=== PATIENT | female | born 1950 | race Caucasian/White ===

== ENCOUNTER 2023-12-15 04:41 | Emergency (ER) | payer OTHER ==
[~2023-12-15] VITALS: Ht 172.7 cm; Wt 61.4 kg
[2023-12-15] MEDS: oxyCODONE ER 10 MG TAB PO ONE (05:03)
[2023-12-15] MEDS: FAMOTIDINE 20 MG TAB PO ONE (05:03)
[2023-12-15 05:04] VITALS: PULSE 59; RESP 16; O2SAT 96
[2023-12-15] MEDS: ONDANSETRON ODT 4 MG TAB PO ONE (05:04)
[2023-12-15] MEDS: MORPHINE SULFATE 4 MG/ML SYR/VIAL IM ONE (05:05)
[2023-12-15] MEDS: LORazepam 0.5 MG TAB PO ONE (05:40)
[2023-12-15 05:43] VITALS: BP 162/77; PULSE 54; RESP 22
== END 2023-12-15 06:00 | disposition home or self-care (01) ==
LOC: ER 04:41
DX: F11.23 Opioid dependence with withdrawal (principal); R10.9 Unspecified abdominal pain; R11.2 Nausea with vomiting, unspecified
CPT/HCPCS: 96372; 99284; J2270; Q0162

== ENCOUNTER 2023-12-15 17:29 | Inpatient (IN) | payer OTHER ==
[~2023-12-15] VITALS: Ht 172.7 cm; Wt 61.9 kg
[2023-12-15 18:32] LABS: Basophils # (auto) 0 10 ^3/uL (0-0.2); Basophils % (auto) 0.1 % (0.0-2.0); Eosinophils # (auto) 0 10 ^3/uL (0-0.8); Hematocrit 44.2 % (36.0-46.0); Hemoglobin 15.5 g/dL (12.2-16.2); Lymphocytes # (auto) 0.6 10 ^3/uL (0.4-5.4); Lymphocytes % (auto) 8.3 % (10.0-50.0); Mean Corpuscular Hgb Conc. 35.1 g/dL (32.0-36.0); Monocytes # (auto) 0.6 10 ^3/uL (0-1.3); Monocytes % (auto) 8.1 % (0.0-12.0); Neutrophils # (auto) 6.5 10 ^3/uL (1.6-8.6); Neutrophils % (auto) 83.5 % (37.0-80.0); Nucleated Red Blood Cells % 0.1 %; Platelet Count (auto) 204 10^3/uL (140-450); Red Blood Cells 4.86 10^6/uL (4.0-5.20); Red Cell Distribution Width 14.7 % (11.8-14.3); White Blood Cell 7.8 10^3/uL (4.4-10.8)
[2023-12-15 18:51] LABS: Alanine Aminotransferase 20 U/L (7-40); Albumin 4.9 g/dL (3.2-4.8); Alkaline Phosphatase 72 U/L (46-116); Anion Gap 10 (5-15); Aspartate Aminotransferase 41 U/L (13-40); BUN/Creatinine Ratio 14.5 (10.0-20.0); Bilirubin, Total 0.8 mg/dL (0.2-1.0); Blood Urea Nitrogen 10 mg/dL (9-23); Calcium 10.1 mg/dL (8.7-10.4); Carbon Dioxide 24 mmol/L (20-30); Chloride 103 mmol/L (98-107); Glucose 112 mg/dL (74-106); Potassium 2.7 mmol/L (3.5-5.1); Sodium 137 mmol/L (136-145); Total Protein 7.5 g/dL (5.7-8.2)
[2023-12-15 20:50] VITALS: PULSE 54; RESP 18; O2SAT 99
[2023-12-15] MEDS: POTASSIUM CHL 20 Meq TABLET PO ONE (21:00)
[2023-12-15] MEDS: SODIUM CHLORIDE 0.9% 1,000 ML IV ONE (21:00)
[2023-12-15] MEDS: ONDANSETRON HCL 4 MG/2 ML VIAL IV ONE (21:00)
[2023-12-15] MEDS: ASPirin 325 MG TAB PO ONE (21:00)
[2023-12-15 21:09] LABS: Urine Bacteria None Seen /hpf (None Seen)
[2023-12-15 21:22] LABS: Urine Blood 1+ /uL (Negative); Urine Clarity Clear (Clear); Urine Color Light-Yellow (Yellow); Urine Mucus FEW (None Seen); Urine Protein, UAD 2+ (Negative); Urine Specific Gravity 1.023 (1.001-1.035); Urine Urobilinogen Normal (Negative); Urine WBC 5 /hpf (0 - 5)
[2023-12-15] MEDS ORDERED: ENOXAPARIN SOD 100 MG/1 ML SYRINGE SC ONE (22:00)
[2023-12-15] MEDS ORDERED: NITROGLYCERIN 0.4 MG SL TAB SL PRN (22:00)
[2023-12-15] MEDS: ENOXAPARIN SOD 60 MG/0.6 ML SYRINGE SC ONE (22:14)
[2023-12-15 22:30] LABS: INR 1.08 (0.9-1.15); Partial Thromboplastin Time 27.7 SEC (24.5-34.5); Prothrombin Time 11.4 sec (9.3-11.8)
[2023-12-15] MEDS: hydrALAZINE HCL 20 MG/ML VL IV PRN (23:11)
[2023-12-16] VITALS (16 sets, daily range): BP systolic 116–150; BP diastolic 49–91; PULSE 64–95; RESP 16–21; TEMP 97.7–98.5; O2SAT 90–96
[2023-12-16] MEDS ORDERED: HEPARIN DRIP/D5W 100UNITS/ML 250 ML IV SCH ×2 (01:30→10:00)
[2023-12-16 01:32] LABS: Basophils # (auto) 0 10 ^3/uL (0-0.2); Basophils % (auto) 0.2 % (0.0-2.0); Eosinophils # (auto) 0 10 ^3/uL (0-0.8); Hematocrit 42.6 % (36.0-46.0); Hemoglobin 15.1 g/dL (12.2-16.2); Lymphocytes # (auto) 0.6 10 ^3/uL (0.4-5.4); Lymphocytes % (auto) 8.5 % (10.0-50.0); Mean Corpuscular Hemoglobin 32.1 pg (28.0-32.0); Mean Corpuscular Hgb Conc. 35.5 g/dL (32.0-36.0); Mean Corpuscular Volume 90.5 fL (80.0-100.0); Monocytes # (auto) 0.8 10 ^3/uL (0-1.3); Monocytes % (auto) 11.1 % (0.0-12.0); Neutrophils # (auto) 5.9 10 ^3/uL (1.6-8.6); Neutrophils % (auto) 80.2 % (37.0-80.0); Nucleated Red Blood Cells % 0.1 %; Platelet Count (auto) 194 10^3/uL (140-450); Red Blood Cells 4.71 10^6/uL (4.0-5.20); Red Cell Distribution Width 14.5 % (11.8-14.3); White Blood Cell 7.3 10^3/uL (4.4-10.8)
[2023-12-16 01:47] LABS: INR 1.12 (0.9-1.15); Prothrombin Time 11.8 sec (9.3-11.8)
[2023-12-16 03:07] LABS: Basophils # (auto) 0 10 ^3/uL (0-0.2); Basophils % (auto) 0.2 % (0.0-2.0); Eosinophils # (auto) 0 10 ^3/uL (0-0.8); Hematocrit 43.8 % (36.0-46.0); Hemoglobin 15.3 g/dL (12.2-16.2); Lymphocytes # (auto) 0.7 10 ^3/uL (0.4-5.4); Lymphocytes % (auto) 9.6 % (10.0-50.0); Mean Corpuscular Hemoglobin 31.8 pg (28.0-32.0); Mean Corpuscular Hgb Conc. 34.8 g/dL (32.0-36.0); Mean Corpuscular Volume 91.2 fL (80.0-100.0); Monocytes % (auto) 12.5 % (0.0-12.0); Neutrophils # (auto) 6.1 10 ^3/uL (1.6-8.6); Neutrophils % (auto) 77.7 % (37.0-80.0); Platelet Count (auto) 196 10^3/uL (140-450); Red Cell Distribution Width 14.6 % (11.8-14.3); White Blood Cell 7.8 10^3/uL (4.4-10.8)
[2023-12-16 03:26] LABS: Alanine Aminotransferase 18 U/L (7-40); Albumin 4.4 g/dL (3.2-4.8); Alkaline Phosphatase 66 U/L (46-116); Anion Gap 9 (5-15); Aspartate Aminotransferase 40 U/L (13-40); BUN/Creatinine Ratio 16.1 (10.0-20.0); Bilirubin, Total 0.6 mg/dL (0.2-1.0); Blood Urea Nitrogen 10 mg/dL (9-23); Calcium 9.4 mg/dL (8.7-10.4); Carbon Dioxide 23 mmol/L (20-30); Chloride 106 mmol/L (98-107); Glucose 118 mg/dL (74-106); Potassium 3.1 mmol/L (3.5-5.1); Sodium 138 mmol/L (136-145); Total Protein 6.8 g/dL (5.7-8.2)
[2023-12-16] MEDS: MORPHINE SULFATE INJ 2 MG/ml SYRG IV PRN (08:16)
[2023-12-16 08:30] LABS: Triglycerides 69 mg/dL (< 150)
[2023-12-16 08:31] LABS: LDL Cholesterol 75 mg/dL (< 100)
[2023-12-16 08:32] LABS: HDL Cholesterol 56 mg/dL (40-59)
[2023-12-16 08:33] LABS: Cholesterol 146 mg/dL (< 200)
[2023-12-16] MEDS: POTASSIUM CHL 20MEQ/100ML 100 ML IV SCH (09:16)
[2023-12-16] MEDS: LORazepam 2MG/ML-1ML VIAL IV PRN ×2 (09:16→21:41)
[2023-12-16] MEDS: ASPirin 81 mg TAB PO SCH (10:00)
[2023-12-16] MEDS ORDERED: ASPirin 81 mg TAB PO SCH (10:00)
[2023-12-16] MEDS: LISINOPRIL 5 MG TAB PO SCH (10:02)
[2023-12-16] MEDS: HEPARIN DRIP/D5W 100UNITS/ML 250 ML IV SCH (10:26)
[2023-12-16] MEDS: CLOPIDOGREL BISULFATE 75 MG TAB PO ONE (10:26)
[2023-12-16] MEDS: fentaNYL CITRATE 100 MCG/2 ML VL ONE (11:05)
[2023-12-16] MEDS: ANGIOMAX 250 MG VIAL IV ONE (11:05)
[2023-12-16] MEDS: VERAPAMIL 2.5MG/ML INJ 2ML VIAL IV ONE (11:05)
[2023-12-16] MEDS: SODIUM CHL 0.9% 0 ML ONE (11:05)
[2023-12-16] MEDS: MIDAZOLAM HCL 2MG/2ML 2ml VIAL (1mg/ml) ONE (11:05)
[2023-12-16] MEDS: HEPARIN SODIUM (PORCINE) 5000 UNITS/ML 1ML VIAL ONE (11:05)
[2023-12-16] MEDS: LIDOCAINE 2%HCL (LOCAL ANESTH.) INJ 20ML MDV ONE (11:06)
[2023-12-16] MEDS: IODIXANOL 320MG/ML 100ML BTL IV ONE (11:06)
[2023-12-16 19:03] LABS: Rapid Strep A Screen-Throat Negative
[2023-12-16 19:22] LABS: COVID19 ANTIGEN SOFIA FIA POSITIVE (NEGATIVE)
[2023-12-16] MEDS ORDERED: MORPHINE SULFATE INJ 2 MG/ml SYRG IV PRN (20:15)
[2023-12-16] MEDS: ATORVASTATIN 20 MG TAB PO SCH (20:47)
[2023-12-16] MEDS: ONDANSETRON HCL 4 MG/2 ML VIAL IV PRN (20:47)
[2023-12-16] MEDS ORDERED: ATORVASTATIN 20 MG TAB PO SCH (22:00)
[2023-12-16] MEDS ORDERED: POTASSIUM CHLORIDE 60 MEQ, LIDOCAINE 1% (LOCAL ANESTH.) 6 ML in SODIUM CHL 0.9% 500 ML IV ONE (23:30)
[2023-12-17] VITALS (7 sets, daily range): BP systolic 131–167; BP diastolic 85–97; PULSE 62–98; RESP 18–22; TEMP 97.8–98.7; O2SAT 96–99
[2023-12-17] MEDS ORDERED: SODIUM CHLORIDE 0.9% 1,000 ML IV SCH (00:15)
[2023-12-17] MEDS: POTASSIUM CHL 20MEQ/100ML 100 ML IV SCH (00:49)
[2023-12-17] MEDS: POTASSIUM CHL 20 Meq TABLET PO ONE ×2 (04:21→17:34)
[2023-12-17 06:08] LABS: Basophils # (auto) 0 10 ^3/uL (0-0.2); Basophils % (auto) 0.2 % (0.0-2.0); Eosinophils # (auto) 0 10 ^3/uL (0-0.8); Eosinophils % (auto) 0.1 % (0.0-7.0); Hemoglobin 15.3 g/dL (12.2-16.2); Lymphocytes # (auto) 1.1 10 ^3/uL (0.4-5.4); Lymphocytes % (auto) 15.5 % (10.0-50.0); Mean Corpuscular Hemoglobin 31.8 pg (28.0-32.0); Mean Corpuscular Hgb Conc. 34.8 g/dL (32.0-36.0); Mean Corpuscular Volume 91.3 fL (80.0-100.0); Monocytes % (auto) 14.4 % (0.0-12.0); Neutrophils # (auto) 4.9 10 ^3/uL (1.6-8.6); Neutrophils % (auto) 69.8 % (37.0-80.0); Nucleated Red Blood Cells % 0.1 %; Platelet Count (auto) 197 10^3/uL (140-450); Red Blood Cells 4.82 10^6/uL (4.0-5.20)
[2023-12-17 06:20] LABS: Alanine Aminotransferase 16 U/L (7-40); Albumin 4.2 g/dL (3.2-4.8); Alkaline Phosphatase 64 U/L (46-116); Anion Gap 7 (5-15); BUN/Creatinine Ratio 17.2 (10.0-20.0); Blood Urea Nitrogen 11 mg/dL (9-23); Calcium 9.8 mg/dL (8.7-10.4); Carbon Dioxide 23 mmol/L (20-30); Chloride 108 mmol/L (98-107); Glucose 92 mg/dL (74-106); Potassium 3.1 mmol/L (3.5-5.1); Sodium 138 mmol/L (136-145)
[2023-12-17 06:21] LABS: Aspartate Aminotransferase 29 U/L (13-40); Total Protein 6.4 g/dL (5.7-8.2)
[2023-12-17] MEDS ORDERED: POTASSIUM CHL 20 Meq TABLET PO ONE ×2 (08:30→16:15)
[2023-12-17] MEDS: amLODIPine BESYLATE 5 MG TAB PO SCH (09:09)
[2023-12-17] MEDS ORDERED: HEPARIN DRIP/D5W 100UNITS/ML 250 ML IV SCH (10:00)
[2023-12-17] MEDS: IBUPROFEN 400 MG TAB PO ONE (11:49)
[2023-12-17] MEDS ORDERED: NALO4SPR3 (17:21)
[2023-12-17] MEDS ORDERED: DULO20CA PO (17:21)
[2023-12-17] MEDS ORDERED: POTA-228 PO (17:21)
[2023-12-17] MEDS ORDERED: TRAZ-228 PO (17:21)
[2023-12-17] MEDS ORDERED: METH5TAB10 PO (17:21)
[2023-12-17] MEDS ORDERED: LISI10TA34 PO (17:21)
[2023-12-17] MEDS ORDERED: FLUV50TA PO (17:21)
[2023-12-17] MEDS ORDERED: OXYC-900 PO (17:21)
[2023-12-17] MEDS: HYDROcodone-ACET 5/325MG TAB PO PRN (17:33)
[2023-12-17 21:28] LABS: Amphetamine Screen, Urine Neg (NEGATIVE); Barbiturate Scree,Urine Neg (NEGATIVE); Benzodiazephine Screen, Urine Pos (NEGATIVE); Cannabinoid Screen, Urine Neg (NEGATIVE); Cocaine Screen, Urine Neg (NEGATIVE); Opiate Scree,Urine Pos (NEGATIVE); Phencyclidine Screen, Urine Neg (NEGATIVE)
[2023-12-17] MEDS: TEMAZEPAM 15 MG CAP PO ONE (22:55)
[2023-12-18] VITALS (8 sets, daily range): BP systolic 132–162; BP diastolic 80–94; PULSE 70–99; RESP 16–18; TEMP 97.8–98.5; O2SAT 96–98
[2023-12-18 06:10] LABS: Hematocrit 41.1 % (36.0-46.0); Hemoglobin 14.3 g/dL (12.2-16.2); Mean Corpuscular Hemoglobin 32.1 pg (28.0-32.0); Mean Corpuscular Hgb Conc. 34.9 g/dL (32.0-36.0); Mean Corpuscular Volume 92.1 fL (80.0-100.0); Platelet Count (auto) 190 10^3/uL (140-450); Red Blood Cells 4.46 10^6/uL (4.0-5.20); Red Cell Distribution Width 14.8 % (11.8-14.3); White Blood Cell 5.7 10^3/uL (4.4-10.8)
[2023-12-18 06:14] LABS: Band Neutrophils % (manual) 0; Basophils % (manual) 0 (0.0-2.0); Blast Cells 0; Eosinophils % (manual) 0 (0-7); Metamyelocytes % 0; Myelocytes % 0; Promyelocytes % 0; Reactive Lymphocytes 0
[2023-12-18 06:30] LABS: Alanine Aminotransferase 13 U/L (7-40); Alkaline Phosphatase 63 U/L (46-116); Anion Gap 3 (5-15); Aspartate Aminotransferase 25 U/L (13-40); BUN/Creatinine Ratio 21.4 (10.0-20.0); Blood Urea Nitrogen 12 mg/dL (9-23); Calcium 9.3 mg/dL (8.7-10.4); Carbon Dioxide 25 mmol/L (20-30); Chloride 109 mmol/L (98-107); Glucose 89 mg/dL (74-106); Potassium 3.7 mmol/L (3.5-5.1); Sodium 137 mmol/L (136-145); Total Protein 6.1 g/dL (5.7-8.2)
[2023-12-18 06:34] LABS: Lymphocytes % (manual) 9 (10.0-50.0); Monocytes % (manual) 15 (0-12); Platelet Estimate Adequate; Smudge Cells 3 /100 WBC
[2023-12-18] MEDS: LORATADINE 10 MG TAB PO SCH (09:21)
[2023-12-18] MEDS: HYDROcodone-ACET 5/325MG TAB PO SCH (11:57)
== END 2023-12-18 20:57 | disposition short-term general hospital (02) | DRG 280 ==
LOC: ER 17:29 → EDBD 17:29 → EDUNIT# 17:29 → TELE 21:53 → TELE-EAST 12-16 16:40
PROVIDERS: ADMIT Internal Medicine; ATTEND Internal Medicine
PROC: B211YZZ Fluoroscopy of Multiple Coronary Arteries using Other Contrast (ICD-10-PCS; principal; 2023-12-16)
PROC: 4A023N7 Measurement of Cardiac Sampling and Pressure, Left Heart, Percutaneous Approach (ICD-10-PCS; 2023-12-16)
DX: I16.1 Hypertensive emergency (principal); U07.1 COVID-19; I21.A1 Myocardial infarction type 2; F11.23 Opioid dependence with withdrawal; E87.6 Hypokalemia; G89.29 Other chronic pain; F41.9 Anxiety disorder, unspecified; M25.552 Pain in left hip
CPT/HCPCS: 36415; 71045; 74022; 80053; 80061; 80307; 81001; 83036; 83880; 84132; 84443; 84484; 85007; 85025; 85027; 85379; 85610; 85730; 87070; 87426; 87880; 93005; 93306; 93458; 96374; 99152; 99291; G0378; J2001; J2250; J2405; J3480; Q9967

== ENCOUNTER 2023-12-21 | Inpatient (IN) | payer OTHER ==
[~2023-12-21] VITALS: Ht 170.2 cm; Wt 59.4 kg
[~2023-12-21] MED LIST: DULO20CA PO; FLUV50TA PO; LISI10TA34 PO; METH5TAB10 PO; NALO4SPR3; OXYC-900 PO; POTA-228 PO; TRAZ-228 PO
[2023-12-21] MEDS: SODIUM CHLORIDE 0.9% 1,000 ML IV ONE (00:15)
[2023-12-21 00:28] LABS: Basophils # (auto) 0 10 ^3/uL (0-0.2); Basophils % (auto) 0.4 % (0.0-2.0); Eosinophils # (auto) 0 10 ^3/uL (0-0.8); Eosinophils % (auto) 0.1 % (0.0-7.0); Hematocrit 42.3 % (36.0-46.0); Hemoglobin 14.9 g/dL (12.2-16.2); Lymphocytes # (auto) 1.7 10 ^3/uL (0.4-5.4); Lymphocytes % (auto) 24.6 % (10.0-50.0); Mean Corpuscular Hgb Conc. 35.2 g/dL (32.0-36.0); Mean Corpuscular Volume 91.1 fL (80.0-100.0); Monocytes # (auto) 0.8 10 ^3/uL (0-1.3); Monocytes % (auto) 11.4 % (0.0-12.0); Neutrophils # (auto) 4.4 10 ^3/uL (1.6-8.6); Neutrophils % (auto) 63.5 % (37.0-80.0); Nucleated Red Blood Cells % 0.1 %; Platelet Count (auto) 237 10^3/uL (140-450); Red Blood Cells 4.64 10^6/uL (4.0-5.20); Red Cell Distribution Width 14.5 % (11.8-14.3); White Blood Cell 6.9 10^3/uL (4.4-10.8)
[2023-12-21 00:36] LABS: Chloride 104 mmol/L (98-107); Sodium 137 mmol/L (136-145)
[2023-12-21 00:37] LABS: Anion Gap 10 (5-15); Carbon Dioxide 23 mmol/L (20-30)
[2023-12-21 00:38] LABS: Calcium 9.8 mg/dL (8.7-10.4)
[2023-12-21 00:43] LABS: BUN/Creatinine Ratio 13.2 (10.0-20.0); Blood Urea Nitrogen 9 mg/dL (9-23); Glucose 161 mg/dL (74-106)
[2023-12-21 00:46] LABS: Potassium 2.3 mmol/L (3.5-5.1)
[2023-12-21 01:30] VITALS: O2SAT 98
[2023-12-21] MEDS: POTASSIUM CHL 20MEQ/100ML 100 ML IV SCH (02:42)
[2023-12-21 03:36] LABS: COVID19 ANTIGEN SOFIA FIA POSITIVE (NEGATIVE)
[2023-12-21 08:07] LABS: Urine Bacteria FEW /hpf (None Seen); Urine Blood Negative /uL (Negative); Urine Budding Yeast FEW /hpf (None Seen); Urine Clarity Turbid (Clear); Urine Color Light-Yellow (Yellow); Urine Protein, UAD Negative (Negative); Urine Specific Gravity 1.009 (1.001-1.035); Urine Urobilinogen Normal (Negative); Urine WBC 3 /hpf (0 - 5)
[2023-12-21 08:11] LABS: Amphetamine Screen, Urine Neg (NEGATIVE); Barbiturate Scree,Urine Neg (NEGATIVE); Benzodiazephine Screen, Urine Neg (NEGATIVE); Cocaine Screen, Urine Neg (NEGATIVE); Opiate Scree,Urine Neg (NEGATIVE)
[2023-12-21 08:12] LABS: Cannabinoid Screen, Urine Neg (NEGATIVE); Phencyclidine Screen, Urine Neg (NEGATIVE)
[2023-12-21] MEDS ORDERED: DEXTROSE (50%) 50ML SYRG IV PRN (10:15)
[2023-12-21] MEDS ORDERED: MORPHINE SULFATE INJ 2 MG/ml SYRG IV PRN (10:15)
[2023-12-21] MEDS ORDERED: DOCUSATE SOD 100 MG CAP PO PRN (10:15)
[2023-12-21] MEDS: SODIUM CHLORIDE 0.9% 1,000 ML IV SCH (10:15)
[2023-12-21] MEDS: ENOXAPARIN SOD 40 MG/0.4 ML SYRINGE SC SCH (10:15)
[2023-12-21] MEDS ORDERED: NITROGLYCERIN 0.4 MG SL TAB SL PRN (10:15)
[2023-12-21 10:32] LABS: Potassium 3.1 mmol/L (3.5-5.1)
[2023-12-21 10:39] LABS: Magnesium 1.6 mg/dL (1.6-2.6)
[2023-12-21 10:40] LABS: Phosphorus 2.6 mg/dL (2.4-5.1)
[2023-12-21] MEDS: InsuLIN REG 1unit/0.01ml Soln (100units/ml) SC SCH (11:30)
[2023-12-21] MEDS: ACCU-CHEK COMFORT CURVE STRIP VI SCH (11:38)
[2023-12-21] MEDS: cefTRIAXone 1GM/50ML D5W 50 ML IV ONE (16:45)
[2023-12-21] MEDS: POTASSIUM CHL 10 Meq TABLET PO SCH (17:08)
[2023-12-21] MEDS: FLUVOXAMINE MALEATE 50 MG PO SCH (17:08)
[2023-12-21] MEDS ORDERED: PATIENTS OWN MEDICATION (Potassium Chloride (Potassium Chloride ER) 10 MEQ) PO SCH (18:00)
[2023-12-21 19:30] VITALS: PULSE 74; RESP 15; O2SAT 96
[2023-12-21] MEDS ORDERED: PATIENTS OWN MEDICATION (Trazodone Hcl 100 MG) PO SCH (22:00)
[2023-12-21] MEDS: traZODone HCL 50 MG TAB PO SCH (22:14)
[2023-12-21] MEDS: ONDANSETRON HCL 4 MG/2 ML VIAL IV PRN (22:15)
[2023-12-21 23:05] VITALS: BP 127/75; PULSE 81; TEMP 99.2; O2SAT 92
[2023-12-21 23:31] VITALS: BP 127/75; PULSE 81; PULSE 85; RESP 18; RESP 20; TEMP 99.2; O2SAT 90; O2SAT 93
[2023-12-22] VITALS (8 sets, daily range): BP systolic 106–159; BP diastolic 59–86; PULSE 81–114; RESP 14–18; TEMP 97.8–99.5; O2SAT 95–98
[2023-12-22 05:58] LABS: Basophils # (auto) 0 10 ^3/uL (0-0.2); Basophils % (auto) 0.3 % (0.0-2.0); Eosinophils # (auto) 0 10 ^3/uL (0-0.8); Eosinophils % (auto) 0.1 % (0.0-7.0); Hematocrit 38.1 % (36.0-46.0); Hemoglobin 13.4 g/dL (12.2-16.2); Lymphocytes % (auto) 13.9 % (10.0-50.0); Mean Corpuscular Hemoglobin 31.8 pg (28.0-32.0); Mean Corpuscular Hgb Conc. 35.1 g/dL (32.0-36.0); Mean Corpuscular Volume 90.7 fL (80.0-100.0); Monocytes # (auto) 0.7 10 ^3/uL (0-1.3); Monocytes % (auto) 10.7 % (0.0-12.0); Neutrophils # (auto) 5.2 10 ^3/uL (1.6-8.6); Platelet Count (auto) 215 10^3/uL (140-450); Red Cell Distribution Width 14.3 % (11.8-14.3)
[2023-12-22 06:40] LABS: Alanine Aminotransferase 20 U/L (7-40); Albumin 3.8 g/dL (3.2-4.8); Alkaline Phosphatase 61 U/L (46-116); Anion Gap 9 (5-15); Aspartate Aminotransferase 20 U/L (13-40); Bilirubin, Total 0.7 mg/dL (0.2-1.0); Blood Urea Nitrogen 5 mg/dL (9-23); Calcium 9.4 mg/dL (8.7-10.4); Carbon Dioxide 26 mmol/L (20-30); Chloride 106 mmol/L (98-107); Glucose 103 mg/dL (74-106); Potassium 2.6 mmol/L (3.5-5.1); Sodium 141 mmol/L (136-145); Total Protein 6.1 g/dL (5.7-8.2)
[2023-12-22] MEDS ORDERED: POTASSIUM CHLORIDE 40 MEQ in SOD CHL 0.45% 1,000 ML IV SCH (07:30)
[2023-12-22] MEDS: LISINOPRIL 5 MG TAB PO SCH (08:44)
[2023-12-22] MEDS: MAGNESIUM SULFATE 1GM/100ML 100 ML IV STA (08:45)
[2023-12-22] MEDS: METHADONE HCL 5 MG PO SCH (08:46)
[2023-12-22] MEDS ORDERED: cefTRIAXone 1GM/50ML D5W 50 ML IV SCH (09:00)
[2023-12-22] MEDS ORDERED: traZODone HCL 50 MG TAB PO SCH (10:00)
[2023-12-22] MEDS ORDERED: PATIENTS OWN MEDICATION (Lisinopril 10 MG) PO SCH (10:00)
[2023-12-22 10:41] LABS: Folate (Folic Acid) 43.47 ng/mL (>5.38)
[2023-12-22] MEDS: POTASSIUM CHLORIDE 80 MEQ, LIDOCAINE 1% (LOCAL ANESTH.) 6 ML in SODIUM CHL 0.9% 500 ML IV ONE (14:00)
[2023-12-22] MEDS: ASPirin 81 mg TAB PO ONE (14:30)
[2023-12-22] MEDS: POTASSIUM EFFERVESENT TAB 25 MEQ PO ONE (17:15)
[2023-12-22] MEDS ORDERED: POTASSIUM CHLORIDE 60 MEQ, LIDOCAINE 1% (LOCAL ANESTH.) 6 ML in SODIUM CHL 0.9% 500 ML IV ONE (17:15)
[2023-12-22] MEDS: ATORVASTATIN 20 MG TAB PO SCH (22:08)
[2023-12-23 01:00] VITALS: BP 146/78; PULSE 86; RESP 17; TEMP 98.3; O2SAT 93
[2023-12-23 03:09] LABS: Rapid Influenza A Negative (Negative); Rapid Influenza B Negative (Negative)
[2023-12-23 05:00] VITALS: BP 132/72; PULSE 81; RESP 17; TEMP 98; O2SAT 95
[2023-12-23 08:00] VITALS: PULSE 131; PULSE 76; RESP 15
[2023-12-23 08:26] LABS: Alanine Aminotransferase 24 U/L (7-40); Alkaline Phosphatase 61 U/L (46-116); Anion Gap 8 (5-15); Aspartate Aminotransferase 24 U/L (13-40); BUN/Creatinine Ratio 13.8 (10.0-20.0); Blood Urea Nitrogen 8 mg/dL (9-23); Calcium 9.7 mg/dL (8.7-10.4); Carbon Dioxide 24 mmol/L (20-30); Chloride 110 mmol/L (98-107); Glucose 92 mg/dL (74-106); Potassium 3.2 mmol/L (3.5-5.1); Sodium 142 mmol/L (136-145)
[2023-12-23 08:27] LABS: Bilirubin, Total 0.8 mg/dL (0.2-1.0); Total Protein 6.3 g/dL (5.7-8.2)
[2023-12-23 08:59] VITALS: BP 135/74; PULSE 76; RESP 15; TEMP 98.9; O2SAT 95
[2023-12-23] MEDS: POTASSIUM CHL 20 Meq TABLET PO STA (09:08)
[2023-12-23 09:47] LABS: Basophils # (auto) 0 10 ^3/uL (0-0.2); Basophils % (auto) 0.2 % (0.0-2.0); Eosinophils # (auto) 0 10 ^3/uL (0-0.8); Eosinophils % (auto) 0.4 % (0.0-7.0); Hematocrit 38.6 % (36.0-46.0); Hemoglobin 13.2 g/dL (12.2-16.2); Lymphocytes % (auto) 18.1 % (10.0-50.0); Mean Corpuscular Hemoglobin 31.4 pg (28.0-32.0); Mean Corpuscular Hgb Conc. 34.3 g/dL (32.0-36.0); Mean Corpuscular Volume 91.6 fL (80.0-100.0); Monocytes # (auto) 0.7 10 ^3/uL (0-1.3); Monocytes % (auto) 11.9 % (0.0-12.0); Neutrophils # (auto) 3.8 10 ^3/uL (1.6-8.6); Neutrophils % (auto) 69.4 % (37.0-80.0); Platelet Count (auto) 223 10^3/uL (140-450); Red Blood Cells 4.22 10^6/uL (4.0-5.20); Red Cell Distribution Width 14.3 % (11.8-14.3); White Blood Cell 5.5 10^3/uL (4.4-10.8)
[2023-12-23] MEDS: ASPirin 81 mg TAB PO SCH (10:20)
[2023-12-23 13:44] VITALS: BP 135/74; PULSE 76; RESP 15; TEMP 98.9; O2SAT 95
== END 2023-12-23 02:05 | disposition home or self-care (01) | DRG 100 ==
LOC: EDBD → ER → TELE 10:11 → TELE-CENTR 23:05
PROVIDERS: ADMIT Internal Medicine Pulmonary Disease; ATTEND Internal Medicine Pulmonary Disease
DX: G40.209 Localization-related (focal) (partial) symptomatic epilepsy and epileptic syndromes with complex partial seizures, not intractable, without status epilepticus (principal); U07.1 COVID-19; N30.00 Acute cystitis without hematuria; E86.0 Dehydration; I49.9 Cardiac arrhythmia, unspecified; I95.1 Orthostatic hypotension; H81.10 Benign paroxysmal vertigo, unspecified ear; E87.5 Hyperkalemia; I10 Essential (primary) hypertension; E87.6 Hypokalemia; G89.29 Other chronic pain; F17.200 Nicotine dependence, unspecified, uncomplicated; I25.10 Atherosclerotic heart disease of native coronary artery without angina pectoris; Z90.710 Acquired absence of both cervix and uterus; Z82.49 Family history of ischemic heart disease and other diseases of the circulatory system; Z80.0 Family history of malignant neoplasm of digestive organs; Z83.3 Family history of diabetes mellitus
CPT/HCPCS: 36415; 70450; 71045; 80048; 80053; 80307; 81001; 82607; 82746; 82962; 83735; 84100; 84132; 84484; 85025; 87081; 87426; 87493; 87804; 93005; 93886; 95819; 96361; 96365; 96366; 96367; 96372; 97163; 99291; G0378; J1815; J2001; J2405; J3480

== ENCOUNTER 2024-01-01 20:55 | Emergency (ER) | payer OTHER ==
[~2024-01-01] VITALS: Ht 172.7 cm; Wt 59.1 kg
[2024-01-01] MEDS: LORazepam 2MG/ML-1ML VIAL IV ONE (01:00)
[2024-01-01] MEDS: DexAMETHasone SOD PHOS 10MG/1ML VIAL INJ IV ONE (01:00)
[~2024-01-01 20:55] MED LIST changes: -DULO20CA PO; -FLUV50TA PO; -METH5TAB10 PO; -NALO4SPR3; -OXYC-900 PO
[2024-01-01 21:08] VITALS: BP 114/66
[2024-01-01 21:16] VITALS: PULSE 70
[2024-01-01 21:19] VITALS: RESP 22
[2024-01-01] MEDS: IPRATROPIUM BROM 0.5 MG/2.5ML INH SOL NEB ONE (21:23)
[2024-01-01] MEDS: ALBUTEROL SULF 2.5 MG/0.5ML(0.5%) NEB SOLN NEB ONE (21:23)
[2024-01-01 21:43] LABS: Basophils # (auto) 0 10 ^3/uL (0-0.2); Basophils % (auto) 0.4 % (0.0-2.0); Eosinophils # (auto) 0 10 ^3/uL (0-0.8); Eosinophils % (auto) 0.6 % (0.0-7.0); Hematocrit 36.4 % (36.0-46.0); Hemoglobin 12.3 g/dL (12.2-16.2); Lymphocytes # (auto) 1.8 10 ^3/uL (0.4-5.4); Lymphocytes % (auto) 27.2 % (10.0-50.0); Mean Corpuscular Hemoglobin 31.4 pg (28.0-32.0); Mean Corpuscular Hgb Conc. 33.7 g/dL (32.0-36.0); Mean Corpuscular Volume 92.9 fL (80.0-100.0); Monocytes # (auto) 0.5 10 ^3/uL (0-1.3); Monocytes % (auto) 7.4 % (0.0-12.0); Neutrophils # (auto) 4.1 10 ^3/uL (1.6-8.6); Neutrophils % (auto) 64.4 % (37.0-80.0); Nucleated Red Blood Cells % 0.1 %; Platelet Count (auto) 298 10^3/uL (140-450); Red Blood Cells 3.92 10^6/uL (4.0-5.20); Red Cell Distribution Width 13.9 % (11.8-14.3); White Blood Cell 6.4 10^3/uL (4.4-10.8)
[2024-01-01 21:55] LABS: Alanine Aminotransferase 76 U/L (7-40); Albumin 4.1 g/dL (3.2-4.8); Alkaline Phosphatase 56 U/L (46-116); Anion Gap 8 (5-15); Aspartate Aminotransferase 58 U/L (13-40); BUN/Creatinine Ratio 22.4 (10.0-20.0); Bilirubin, Total 0.6 mg/dL (0.2-1.0); Blood Urea Nitrogen 17 mg/dL (9-23); Carbon Dioxide 21 mmol/L (20-30); Chloride 110 mmol/L (98-107); Glucose 110 mg/dL (74-106); Potassium 3.1 mmol/L (3.5-5.1); Sodium 139 mmol/L (136-145); Total Protein 6.4 g/dL (5.7-8.2)
[2024-01-02] MEDS ORDERED: HYDR50TA32 PO (00:07)
[2024-01-02] MEDS ORDERED: DOXY-346 PO (00:07)
[2024-01-02 00:37] VITALS: O2SAT 96
[2024-01-02] MEDS: POTASSIUM CHL 20 Meq TABLET PO ONE (00:46)
== END 2024-01-02 01:11 | disposition home or self-care (01) ==
LOC: ER 20:55
DX: J40 Bronchitis, not specified as acute or chronic (principal); E87.6 Hypokalemia; I10 Essential (primary) hypertension
CPT/HCPCS: 36415; 71045; 80053; 83880; 84484; 85025; 93005; 94640; 96374; 96375; 99285; J1100; J2060